=== PATIENT | female | born 1995 | race African-American/Black ===

== ENCOUNTER 2016-09-16 00:18 | Emergency (ER) | payer SELFPAY ==
[~2016-09-16] VITALS: Ht 165.1 cm; Wt 75.0 kg
[~2016-09-16 00:18] MED LIST: CLIN1CAP6 PO
[2016-09-16 00:20] VITALS: BP 105/55; PULSE 71; RESP 16; TEMP 98.4; O2SAT 99
[2016-09-16 01:44] VITALS: BP 101/59; PULSE 64; RESP 16; O2SAT 100
[2016-09-16] MEDS ORDERED: KETOROLAC TROMETHAMINE 60 MG/2 ML (IM) VIAL IM ONE (01:45)
[2016-09-16] MEDS ORDERED: diphenhydrAMINE HCL 50 MG/ML VIAL IM ONE (01:45)
[2016-09-16] MEDS ORDERED: METOCLOPRAMIDE HCL 10 MG/2 ML VIAL IM ONE (01:45)
--- NOTE | 2016-09-16 02:10 | PD ---
HPI Chief Complaint: Headache Time Seen by Provider: 01:37 Travel History International Travel<30 days: No Contact w/Intl Traveler<30days: No Traveled to known affect area: No History of Present Illness HPI Healthy 21-year-old female here with complaint of headache. Patient has had 3 months of intermittent headache, bilateral retro-orbital with associated photophobia, phonophobia, nausea but no vomiting. She's been taking over-the- counter medications without much improvement prompting her ER visit. Patient is a college student and works 2 jobs and admits that she is "burning the candle at both ends", and not getting much sleep which may be contributing to her symptoms. This is not the worse headache of her life, no nocturnal symptoms. PFSH Past Medical History Medical History: Denies Significant Hx Hx Anticoagulant Therapy: No Asthma: Yes Cardiovascular Problems: No Chemotherapy: No Cerebrovascular Accident: No Diabetes: No Respiratory: Yes (ASTHMA) Immunizations Current: Yes Tetanus Vaccination: Unknown Influenza Vaccination: No ?: Not LMP: Jul 2016 : 0 Past Surgical History Surgical History: No Previous Surgery Hysterectomy: No Social History Alcohol Use: No Tobacco Use: No Substance Use: No Allergies-Medications (Allergen,Severity, Reaction): Coded Allergies: No Known Allergies (Unverified , 09/16/16) Reported Meds & Prescriptions Reported Meds & Active Scripts Active No Active Prescriptions or Reported Medications Review of Systems Except as stated in HPI: all other systems reviewed are Neg Physical Exam Narrative GENERAL: Well-appearing female in no acute distress SKIN: Focused skin assessment warm/dry. HEAD: Atraumatic. Normocephalic. EYES: Pupils equal and round. No scleral icterus. No injection or drainage. ENT: No nasal bleeding or discharge. Mucous membranes pink and moist. NECK: Supple CARDIOVASCULAR: Regular rate and rhythm. RESPIRATORY: No accessory muscle use. MUSCULOSKELETAL: Moves all extremities normally NEUROLOGICAL: Awake and alert. No obvious cranial nerve deficits. Motor grossly within normal limits. Normal speech. PSYCHIATRIC: Appropriate mood and affect; insight and judgment normal. Data Data Last Documented VS Vital Signs Date Time Temp Pulse Resp B/P Pulse Ox O2 Delivery O2 Flow Rate FiO2 09/16/16 01:44 64 16 101/59 100 Room Air 09/16/16 00:20 98.4 Orders Oximetry (09/16/16 01:38) Ketorolac Inj (Toradol Inj) (09/16/16 01:45) Diphenhydramine Inj (Benadryl Inj) (09/16/16 01:45) Metoclopramide Inj (Reglan Inj) (09/16/16 01:45) MDM Medical Decision Making Medical Screen Exam Complete: Yes Emergency Medical Condition: Yes Medical Record Reviewed: Yes Differential Diagnosis 21-year-old female here with complaint of headache. Differential includes tension headache, cluster headache, migraine headache. Patient has been afebrile, no neck stiffness or noctural headaches, is well-appearing, with a normal neurologic examination. This makes infection and subarachnoid hemorrhage very unlikely. There is not enough evidence to pursue these diagnoses. Narrative Course Patient given Benadryl, Reglan, Toradol with improvement of symptoms and will be discharged home. Encouraged her to get plenty of rest. Diagnosis Primary Impression: Headache Qualified Code: R51 - Acute nonintractable headache, unspecified headache type Referrals: Primary Care Physician as needed Patient Instructions: General Headache (ED), General Instructions Additional Instructions: Excedrin Migraine, Aleve, Motrin, Tylenol as needed for headache. Follow-up with primary care provider symptoms persist and return to the ER for the warning signs discussed. Med/Other Pt SpecificInfo: No Change to Meds Scripts No Active Prescriptions or Reported Meds Disposition: DISCHARGE HOME Condition: Stable Tiny Glez MD Sep 16, 2016 02:10
[2016-09-16 02:18] VITALS: BP 98/59
== END 2016-09-16 03:00 | disposition home or self-care (01) ==
LOC: NEPE 00:18
DX: R51 Headache (principal); R11.0 Nausea; J45.909 Unspecified asthma, uncomplicated
CPT/HCPCS: 96372; 99283; J1200; J1885; J2765

== ENCOUNTER 2017-06-25 15:42 | Emergency (ER) | payer SELFPAY ==
[~2017-06-25] VITALS: Ht 160 cm; Wt 68.0 kg
[2017-06-25 15:43] VITALS: BP 93/50; PULSE 88; RESP 18; TEMP 99.4; O2SAT 96
[2017-06-25 20:00] VITALS: BP 115/71; PULSE 77; RESP 18; O2SAT 99
[2017-06-25] MEDS ORDERED: GUAI1LIQ13 PO (20:07)
[2017-06-25] MEDS ORDERED: BENZ1CAP51 PO (20:07)
[2017-06-25] MEDS ORDERED: FEXO1TAB97 PO (20:07)
--- NOTE | 2017-06-25 20:11 | PD ---
HPI Chief Complaint: Cold / Flu Symptoms Time Seen by Provider: 19:41 Travel History International Travel<30 days: No Contact w/Intl Traveler<30days: No Traveled to known affect area: No History of Present Illness HPI 22-year-old female presents to the ED for evaluation of 5 day history of sneezing, nonproductive cough, mild sinus congestion, mild sore throat, body aches. She states that she measured a fever around 100 this morning and took Tylenol. She is afebrile on presentation. She denies sick contacts, nausea, vomiting, history of seasonal allergies, receiving this years flu vaccine. She treated at home with some OTC medications with no improvement in symptoms. PFSH Past Medical History Hx Anticoagulant Therapy: No Asthma: Yes Cardiovascular Problems: No Chemotherapy: No Cerebrovascular Accident: No Diabetes: No Diminished Hearing: No Respiratory: Yes (ASTHMA) Immunizations Current: Yes ?: Not LMP: 06/11/17 : 0 Past Surgical History Surgical History: No Previous Surgery Hysterectomy: No Social History Alcohol Use: No Tobacco Use: No Substance Use: No Allergies-Medications (Allergen,Severity, Reaction): Coded Allergies: No Known Allergies (Unverified Adverse Reaction, Unknown, 06/25/17) Reported Meds & Prescriptions Reported Meds & Active Scripts Active Coditussin AC Liq (Guaifenesin-Codeine Liq) 200-10 Mg/5ML Liqd 5 Ml PO Q4H PRN Benzonatate 200 Mg Cap 200 Mg PO TID PRN Batool-D 24 Hour Allergy (Fexofenadine-Pseudoephedrine ER 24 HR) 180-240 David 1 Tab PO DAILY Review of Systems Except as stated in HPI: all other systems reviewed are Neg Physical Exam Narrative GENERAL: Well-nourished, well-developed AA female in no acute distress. SKIN: Warm and dry. HEAD: Normocephalic. Atraumatic. EYES: No scleral icterus. No injection or drainage. PERRLA. EOMI. ENT: Pearly hare tympanic membranes bilaterally. Nasal mucosa is moist. Oropharynx without erythema, edema or exudate. Exam somewhat limited, Mallampati class IV. NECK: Supple, trachea midline. No JVD or lymphadenopathy. CARDIOVASCULAR: Regular rate and rhythm without murmurs, gallops, or rubs. RESPIRATORY: Breath sounds clear and equal bilaterally. No accessory muscle use. GASTROINTESTINAL: Abdomen soft, non-tender, nondistended. + Bowel sounds MUSCULOSKELETAL: No cyanosis, or edema. BACK: Nontender without obvious deformity. No CVA tenderness. Data Data Last Documented VS Vital Signs Date Time Temp Pulse Resp B/P (MAP) Pulse Ox O2 Delivery O2 Flow Rate FiO2 06/25/17 20:26 06/25/17 20:00 77 18 99 Room Air 06/25/17 15:43 99.4 Orders Orders Influenzae A/B Antigen (06/25/17 19:36) Ed Discharge Order (06/25/17 20:11) MDM Medical Decision Making Medical Screen Exam Complete: Yes Emergency Medical Condition: Yes Differential Diagnosis Viral syndrome versus seasonal allergies versus influenza versus other Narrative Course 22-year-old female presents to the ED for evaluation of 5 day history of sneezing, nonproductive cough, mild sinus congestion, mild sore throat, body aches. She states that she measured a fever around 100 this morning and took Tylenol. She is afebrile on presentation. She denies sick contacts, nausea, vomiting, history of seasonal allergies, receiving this years flu vaccine. Patient is afebrile, hypotensive on presentation. Review the chart reveals his hypotensive is chronic. Sounds very reassuring. I suspect there is a component of seasonal allergies with this given the complaint of copious sneezing. She is prescribed Batool-D, Tessalon Perles and Cheratussin cough syrup. She is cautioned not to drive while taking the cough syrup. She is instructed to follow-up with primary care provider. She indicated understanding of instructions. She is agreeable care plan. She is stable and discharged home. Diagnosis Primary Impression: Viral syndrome Referrals: Primary Care Physician Patient Instructions: General Instructions, Viral Syndrome (DC) Additional Instructions: Rest, hydrate. Push fluids such as sports drinks, Pedialyte, popsicles, clear broth. Take medications as they're prescribed. Do not drive while taking codeine cough syrup. Alternating Motrin and Tylenol every 4-6 hours as needed for continued fever. Increase handwashing frequently to avoid the spread of the virus to other family members and the community. Disinfect commonly touched surfaces such as light switches, microwaves, remote controls. Replace toothbrush at the end of this illness. Follow-up with the primary care provider this week. Return to the ED for any urgent or emergent medical condition. Med/Other Pt SpecificInfo: Prescription(s) given Scripts Guaifenesin-Codeine Liq (Coditussin AC Liq) 200-10 Mg/5ML Liqd 5 ML PO Q4H Y, #120 ML 0 Refills Prov: Radha Rodriguez MD 06/25/17 Benzonatate (Benzonatate) 200 Mg Cap 200 MG PO TID Y for COUGH, #15 CAP 0 Refills Prov: Radha Rodriguez MD 06/25/17 Fexofenadine-Pseudoephedrine ER 24 HR (Batool-D 24 Hour Allergy) 180-240 David 1 TAB PO DAILY for Allergy Management, #30 TAB 0 Refills Prov: Radha Rodriguez MD 06/25/17 Disposition: 01 DISCHARGE HOME Condition: Stable Mirna Mayo Jun 25, 2017 20:11
== END 2017-06-25 20:33 | disposition home or self-care (01) ==
LOC: NEPK 15:42
DX: B34.9 Viral infection, unspecified (principal); J45.909 Unspecified asthma, uncomplicated
CPT/HCPCS: 87804; 99284